=== PATIENT | male | born 1965 | race Caucasian/White ===

== ENCOUNTER 2020-05-29 14:32 | Outpatient (CLI) | payer OTHER ==
[2020-05-29] MEDS ORDERED: POTA20TA89 PO (14:57)
[2020-05-29] MEDS ORDERED: TRIA1TAB3 PO (14:57)
[2020-05-29] MEDS ORDERED: [UNRECOGNIZED DRUG - OTHER] PO (14:57)
[2020-05-29] MEDS ORDERED: [UNRECOGNIZED DRUG - OTHER] PO (14:57)
[2020-05-29] MEDS ORDERED: OMEP-110 PO (14:57)
[2020-05-29] MEDS ORDERED: [UNRECOGNIZED DRUG - OTHER] PO (14:57)
[2020-05-29] MEDS ORDERED: LACT1CAP37 PO (14:57)
[2020-05-29] MEDS ORDERED: OXYC-307 PO (14:57)
[2020-05-29] MEDS ORDERED: DULO30CA2 PO (14:57)
[2020-05-29] MEDS ORDERED: [UNRECOGNIZED DRUG - OTHER] PO (14:57)
[2020-05-29] MEDS ORDERED: MULT-658 PO (14:57)
[2020-05-29] MEDS ORDERED: GABA-827 PO (14:57)
[2020-05-29 15:28] LABS: BASOPHILS # (AUTO) 0.03 x10^3/uL (0-0.1); BASOPHILS % (AUTO) 1 % (0-1); EOSINOPHILS # (AUTO) 0.16 x10^3/uL (0-0.4); EOSINOPHILS % (AUTO) 3 % (1-7); LYMPHOCYTES # (AUTO) 1.96 x10^3/uL (1-3.4); LYMPHOCYTES % (AUTO) 36 % (22-44); MD NO; MEAN CORPUSCULAR HEMOGLOBIN 31.8 pg (27.5-34.5); MEAN CORPUSCULAR HGB CONC 33.9 g/dL (33.2-36.2); MEAN PLATELET VOLUME 7.6 fL (7.4-10.4); MONOCYTES # (AUTO) 0.98 x10^3/uL (0.2-0.8); MONOCYTES % (AUTO) 18 % (2-9); NEUTROPHILS # (AUTO) 2.35 x10^3/uL (1.8-6.8); NEUTROPHILS % (AUTO) 43 % (42-75); PLATELET COUNT 322 x10^3/uL (130-400); RED CELL DISTRIBUTION WIDTH 12.8 % (9.4-14.8)
[2020-05-29 15:35] LABS: INTERNATIONAL NORMALIZED RATIO 0.94 (0.93-1.1)
[2020-05-29 15:36] LABS: ALANINE AMINOTRANSFERASE 30 U/L (12-78); ALBUMIN 3.5 g/dL (3.4-5.0); ANION GAP 6 mmol/L (5-15); CALCIUM 8.7 mg/dL (8.5-10.1); CHLORIDE 104 mmol/L (98-107); CREATININE 1.08 mg/dL (0.7-1.3)
[2020-05-29 15:39] LABS: ALKALINE PHOSPHATASE 86 U/L (45-117); BILIRUBIN,TOTAL 0.5 mg/dL (0.2-1.0); TOTAL PROTEIN 7.9 g/dL (6.4-8.2)
== END 2020-05-29 23:59 | disposition home or self-care (01) ==
LOC: STAR 14:32
PROVIDERS: ATTEND Neurological Surgery
DX: Z01.818 Encounter for other preprocedural examination (principal); M51.36 Other intervertebral disc degeneration, lumbar region
CPT/HCPCS: 36415; 71046; 80053; 85025; 85610; 85730; 93005

== ENCOUNTER 2020-06-07 10:10 | Day surgery (SDC) | payer OTHER ==
[~2020-06-07] VITALS: Ht 182.9 cm; Wt 102.3 kg
[~2020-06-07 10:10] MED LIST: BACITRACIN 50,000 UNIT ONE; BACITRACIN OINT 500U/GM, 15 GM ONE; BUPIVACAINE/PF-EPI 0.5% 1:200K ONE; DULO30CA2 PO; GABA-827 PO; LACT1CAP37 PO; MULT-658 PO; OMEP-110 PO; OXYC-307 PO; POTA20TA89 PO; THROMBIN 20,000 UNIT VIAL TP ONE; TRIA1TAB3 PO; [UNRECOGNIZED DRUG - OTHER] PO; [UNRECOGNIZED DRUG - OTHER] PO; [UNRECOGNIZED DRUG - OTHER] PO; [UNRECOGNIZED DRUG - OTHER] PO
[2020-06-07] MEDS ORDERED: LACTATED RINGERS 1,000 ML IV SCH (10:26)
[2020-06-07] MEDS ORDERED: CHLORHEXIDINE 15 ML UDC MM ONE (10:30)
[2020-06-07 10:36] VITALS: BP 123/86
[2020-06-07] MEDS ORDERED: HYDR-3246 PO (10:36)
[2020-06-07] MEDS ORDERED: FENTANYL PF 250 MCG/5ML ONE (11:17)
[2020-06-07] MEDS ORDERED: MIDAZOLAM 1 MG/ML, 2ML ONE (11:17)
[2020-06-07] MEDS ORDERED: ROCURONIUM 10MG/ML,5ML ONE (11:38)
[2020-06-07] MEDS ORDERED: NEOSTIGMINE 1 MG/ML, 10ML ONE (11:38)
[2020-06-07] MEDS ORDERED: GLYCOPYRROLATE 0.2MG/1ML, 5ML ONE (11:38)
[2020-06-07] MEDS ORDERED: DEXAMETHASONE 4 MG/ML, 1ML ONE (11:38)
[2020-06-07] MEDS ORDERED: SUCCINYLCHOLINE 20 MG/ML, 10ML ONE (11:38)
[2020-06-07] MEDS ORDERED: ONDANSETRON 2MG/ML, 2ML ONE (11:38)
[2020-06-07] MEDS ORDERED: LIDOCAINE-MPF 2% ,5ML ONE (11:38)
[2020-06-07] MEDS ORDERED: CEFAZOLIN 1,000 MG ONE (11:38)
[2020-06-07] MEDS ORDERED: PROPOFOL 10 MG/ML, 20ML ONE (11:38)
[2020-06-07] MEDS ORDERED: KETOROLAC 30 MG/1 ML ONE ×2 (11:38)
[2020-06-07] MEDS ORDERED: PROPOFOL 50 ML ONE (11:42)
[2020-06-07] MEDS ORDERED: MEPERIDINE/PF 25MG/0.5ML IVPush PRN (13:00)
[2020-06-07] MEDS ORDERED: hydrALAzine 20 MG/ML, 1ML IV PRN (13:00)
[2020-06-07] MEDS ORDERED: METHOCARBAMOL 1,000 MG in DEXTROSE 5% 100 ML IV PRN (13:00)
[2020-06-07] MEDS ORDERED: PROMETHAZINE 25 MG/ML, 1ML IVPush PRN (13:00)
[2020-06-07] MEDS ORDERED: LABETALOL 5MG/ML, 20ML IV PRN (13:00)
[2020-06-07] MEDS ORDERED: OXYcodone 5 MG/5 ML ORAL.SOL UDC PO PRN (13:00)
[2020-06-07] MEDS ORDERED: ALBUTEROL SULFATE 2.5 MG/3 ML NPPB PRN (13:00)
[2020-06-07] MEDS ORDERED: ACETAMINOPHEN 325 MG TABLET PO PRN (13:00)
[2020-06-07] MEDS ORDERED: LORazepam 2 MG/ML, 1ML IVPush PRN (13:00)
[2020-06-07] MEDS ORDERED: FENTANYL PF 100 MCG/2ML ONE (13:26)
[2020-06-07] MEDS ORDERED: OXYcodone 5 MG/5 ML ORAL.SOL UDC ONE (13:26)
[2020-06-07] MEDS: FENTANYL PF 100 MCG/2ML IV PRN ×2 (13:30→13:35)
[2020-06-07] MEDS ORDERED: HYDROmorphone 1 MG/ML, 1ML INJ ONE (13:41)
[2020-06-07] MEDS: HYDROmorphone 1 MG/ML, 1ML INJ IVPush PRN ×2 (13:45→13:50)
[2020-06-07] MEDS ORDERED: GABAPENTIN 400 MG CAPSULE PO SCH (14:00)
[2020-06-07] MEDS ORDERED: METHOCARBAMOL 1,000 MG in DEXTROSE 5% 100 ML IV ONE (15:00)
== END 2020-06-07 16:50 | disposition home or self-care (01) ==
LOC: SDC 10:10 → EDSTATUS 13:30 → SDC 16:50 → UNDODISIN 17:00
PROVIDERS: ATTEND Neurological Surgery
DX: Z45.42 Encounter for adjustment and management of neurostimulator (principal); Z20.828 Contact with and (suspected) exposure to other viral communicable diseases; M54.5 Low back pain; M51.36 Other intervertebral disc degeneration, lumbar region; M48.061 Spinal stenosis, lumbar region without neurogenic claudication; M47.817 Spondylosis without myelopathy or radiculopathy, lumbosacral region; K21.9 Gastro-esophageal reflux disease without esophagitis; I10 Essential (primary) hypertension; J45.909 Unspecified asthma, uncomplicated; G47.33 Obstructive sleep apnea (adult) (pediatric); E66.9 Obesity, unspecified; Z68.28 Body mass index [BMI] 28.0-28.9, adult; Z79.891 Long term (current) use of opiate analgesic; Z79.899 Other long term (current) drug therapy
CPT/HCPCS: 36415; 63662; 72072; 87635; 95938; 95941; J0330; J0690; J1100; J1170; J1885; J2250; J2405; J2704; J2710; J3010; J7120

== ENCOUNTER 2020-06-22 13:14 | Inpatient (IN) | payer OTHER ==
[~2020-06-22] VITALS: Ht 182.9 cm; Wt 101.0 kg
[~2020-06-22 13:14] MED LIST changes: -BACITRACIN 50,000 UNIT ONE; -BACITRACIN OINT 500U/GM, 15 GM ONE; -BUPIVACAINE/PF-EPI 0.5% 1:200K ONE; +HYDR-3246 PO; -THROMBIN 20,000 UNIT VIAL TP ONE
[2020-06-22] MEDS ORDERED: ONDANSETRON 2MG/ML, 2ML IVPush ONE (14:30)
[2020-06-22] MEDS ORDERED: HYDROmorphone 1 MG/ML, 1ML INJ IVPush PRN (14:30)
[2020-06-22] MEDS ORDERED: SODIUM CHLORIDE FLUSH 10ML SYR IVF ONE (14:30)
[2020-06-22] MEDS ORDERED: CEFTRIAXONE PMX 1GM/50ML 50 ML IVPB ONE (14:30)
[2020-06-22] MEDS ORDERED: CEFTRIAXONE PMX 1GM/50ML 50 ML ONE (14:40)
[2020-06-22] MEDS ORDERED: HYDROmorphone 1 MG/ML, 1ML INJ ONE (14:41)
[2020-06-22] MEDS ORDERED: ONDANSETRON 2MG/ML, 2ML ONE (14:41)
--- NOTE | 2020-06-22 15:03 | NUR ---
BREAK RN: PT RESTING ON GURNEY. NADN. FLORES. PIV INITIATED AND MEDICATED PER JAN.
--- NOTE | 2020-06-22 15:21 | NUR ---
PT RPTS BACK PAIN NOW 11/12 BUT REQUESTS HIS GABAPENTIN 2/2 SHASHI FOOT NEUROPATHY.
[2020-06-22 15:36] LABS: BASOPHILS # (AUTO) 0.05 x10^3/uL (0-0.1); BASOPHILS % (AUTO) 0 % (0-1); EOSINOPHILS # (AUTO) 0.08 x10^3/uL (0-0.4); EOSINOPHILS % (AUTO) 1 % (1-7); LYMPHOCYTES # (AUTO) 2.16 x10^3/uL (1-3.4); LYMPHOCYTES % (AUTO) 20 % (22-44); MD NO; MEAN CORPUSCULAR HEMOGLOBIN 31.3 pg (27.5-34.5); MEAN CORPUSCULAR HGB CONC 33.5 g/dL (33.2-36.2); MEAN CORPUSCULAR VOLUME 93.3 fL (81-97); MONOCYTES # (AUTO) 1.29 x10^3/uL (0.2-0.8); MONOCYTES % (AUTO) 12 % (2-9); NEUTROPHILS # (AUTO) 7.01 x10^3/uL (1.8-6.8); NEUTROPHILS % (AUTO) 66 % (42-75); PLATELET COUNT 292 x10^3/uL (130-400); RED BLOOD COUNT 4.95 x10^6/uL (4.38-5.82); RED CELL DISTRIBUTION WIDTH 12.7 % (9.4-14.8)
[2020-06-22 15:44] LABS: ALBUMIN 3.5 g/dL (3.4-5.0); ANION GAP 7 mmol/L (5-15); CALCIUM 8.9 mg/dL (8.5-10.1); CHLORIDE 102 mmol/L (98-107); CREATININE 0.91 mg/dL (0.7-1.3)
[2020-06-22 16:41] LABS: HCT (SEDRATE) 46.2 % (39.2-51.8)
[2020-06-22] MEDS ORDERED: GADOTERATE 10 MMOL/20 ML VIAL ONE (16:43)
[2020-06-22] MEDS ORDERED: NS + 20MEQ KCL 1,000 ML IV SCH (17:44)
[2020-06-22] MEDS ORDERED: OMEPRAZOLE 20 MG CAPSULE.DR PO SCH (18:00)
[2020-06-22] MEDS ORDERED: morphine SULFATE 10 MG/ML, 1ML IVPush PRN (18:00)
[2020-06-22] MEDS ORDERED: BISACODYL 10 MG SUPP PR PRN (18:00)
[2020-06-22] MEDS ORDERED: POLYETHYLENE GLYCOL 17 GM PACKET PO PRN (18:00)
[2020-06-22] MEDS ORDERED: ACETAMINOPHEN 325 MG TABLET PO PRN (18:00)
[2020-06-22] MEDS ORDERED: ONDANSETRON ODT 4 MG PO PRN (18:00)
[2020-06-22] MEDS ORDERED: OXYcodone/APAP 10/325MG TABLET PO PRN (18:00)
--- NOTE | 2020-06-22 18:22 | NUR ---
LATE ENTRY FOR 1430, PER DISCUSSION WITH DR CALDERON OFFICE AND DR ZUNIGA ANTIBIOTICS ARE ON HOLD FOR NOW. DR NIX INTENDS TO CULTURE THE WOUNDS AND WANTS ANTIBIOTICS HELD UNTIL THEN
[2020-06-22] MEDS ORDERED: OMEPRAZOLE 20 MG CAPSULE.DR ONE (18:24)
[2020-06-22] MEDS ORDERED: NS + 20MEQ KCL 1,000 ML IV ONE (18:25)
[2020-06-22 18:58] VITALS: BP 116/62
[2020-06-22] MEDS ORDERED: LIDOCAINE-MPF 1%, 5ML ONE (19:17)
[2020-06-22] MEDS ORDERED: LIDOCAINE 2%, 20ML SQ ONE (19:30)
[2020-06-22] MEDS ORDERED: morphine SULFATE 10 MG/ML, 1ML IVPush ONE (19:50)
[2020-06-22] MEDS ORDERED: CEFTRIAXONE PMX 2GM/50ML 50 ML IV ONE (20:30)
[2020-06-22] MEDS ORDERED: VANCOMYCIN PER PHARMACY MC PRN (20:30)
[2020-06-22] MEDS: DULOXETINE 30 MG CAPSULE.DR PO SCH (20:45)
[2020-06-22] MEDS: GABAPENTIN 400 MG CAPSULE PO SCH (20:45)
[2020-06-22] MEDS ORDERED: GABAPENTIN 400 MG CAPSULE PO SCH (21:00)
[2020-06-22] MEDS ORDERED: PHARMACOKINETIC MONITORING MC PRN ×2 (21:00)
[2020-06-22] MEDS ORDERED: DIPHENHYDRAMINE 25 MG CAPSULE PO PRN (21:00)
[2020-06-22] MEDS ORDERED: VANCOMYCIN 2,500 MG in SODIUM CHLORIDE 0.9% 500 ML IV ONE (21:00)
[2020-06-22] MEDS ORDERED: PHARMACOKINETIC CONSULTATION MC ONE ×2 (21:00)
[2020-06-22] MEDS ORDERED: DIPHENHYDRAMINE 25 MG CAPSULE ONE (21:15)
[2020-06-22] MEDS: METRONIDAZOLE PMX 500MG/100ML 100 ML IV SCH (22:16)
[2020-06-22 22:22] VITALS: BP 116/62
[2020-06-23] MEDS ORDERED: OMEPRAZOLE 20 MG CAPSULE.DR PO PRN
[2020-06-23 00:20] VITALS: BP 101/64
[2020-06-23 06:15] LABS: ANION GAP 7 mmol/L (5-15); CALCIUM 8.3 mg/dL (8.5-10.1); CHLORIDE 105 mmol/L (98-107)
[2020-06-23 06:16] LABS: CREATININE 0.91 mg/dL (0.7-1.3)
[2020-06-23 06:23] LABS: BASOPHILS # (AUTO) 0.04 x10^3/uL (0-0.1); BASOPHILS % (AUTO) 1 % (0-1); EOSINOPHILS # (AUTO) 0.23 x10^3/uL (0-0.4); EOSINOPHILS % (AUTO) 3 % (1-7); LYMPHOCYTES # (AUTO) 2.19 x10^3/uL (1-3.4); LYMPHOCYTES % (AUTO) 27 % (22-44); MD NO; MEAN CORPUSCULAR HEMOGLOBIN 31.4 pg (27.5-34.5); MEAN CORPUSCULAR HGB CONC 33.7 g/dL (33.2-36.2); MEAN CORPUSCULAR VOLUME 93.1 fL (81-97); MEAN PLATELET VOLUME 8.1 fL (7.4-10.4); MONOCYTES # (AUTO) 1.15 x10^3/uL (0.2-0.8); MONOCYTES % (AUTO) 14 % (2-9); NEUTROPHILS # (AUTO) 4.43 x10^3/uL (1.8-6.8); NEUTROPHILS % (AUTO) 55 % (42-75); PLATELET COUNT 246 x10^3/uL (130-400); RED BLOOD COUNT 4.61 x10^6/uL (4.38-5.82); RED CELL DISTRIBUTION WIDTH 12.7 % (9.4-14.8)
[2020-06-23] MEDS ORDERED: CHLORHEXIDINE 15 ML UDC MM ONE (06:30)
[2020-06-23] MEDS ORDERED: BACITRACIN 50,000 UNIT ONE ×2 (06:33→07:23)
[2020-06-23] MEDS ORDERED: THROMBIN 20,000 UNIT VIAL TP ONE (06:33)
[2020-06-23] MEDS ORDERED: BUPIVACAINE/PF-EPI 0.5% 1:200K ONE (06:33)
[2020-06-23] MEDS ORDERED: BACITRACIN ZINC OINT 500U/GM, 0.9 GM ONE (06:33)
[2020-06-23] MEDS ORDERED: PROPOFOL 50 ML ONE ×2 (06:53→07:37)
[2020-06-23] MEDS ORDERED: FENTANYL PF 250 MCG/5ML ONE (06:53)
[2020-06-23] MEDS ORDERED: CEFAZOLIN 1,000 MG ONE (06:59)
[2020-06-23] MEDS ORDERED: POTASSIUM CHLORIDE 20 MEQ in SODIUM CHLORIDE 0.9% 250 ML IV ONE (07:00)
[2020-06-23] MEDS ORDERED: VANCOMYCIN 1,000 MG ONE (07:23)
[2020-06-23] MEDS ORDERED: OXYcodone 5 MG/5 ML ORAL.SOL UDC PO PRN (07:30)
[2020-06-23] MEDS ORDERED: PROMETHAZINE 25 MG/ML, 1ML IVPush PRN (07:30)
[2020-06-23] MEDS ORDERED: EPHEDRINE 50 MG/ML, 1ML IM PRN (07:30)
[2020-06-23] MEDS ORDERED: MEPERIDINE/PF 25MG/0.5ML IVPush PRN (07:30)
[2020-06-23] MEDS ORDERED: ONDANSETRON 2MG/ML, 2ML IVPush PRN (07:30)
[2020-06-23] MEDS ORDERED: DIAZEPAM 5 MG/ML, 2ML IVPush PRN (07:30)
[2020-06-23] MEDS ORDERED: DIPHENHYDRAMINE 50 MG/ML, 1ML IVPush PRN ×2 (07:30→10:30)
[2020-06-23] MEDS ORDERED: HYDROmorphone 1 MG/ML, 1ML INJ IVPush PRN (07:30)
[2020-06-23] MEDS ORDERED: ONDANSETRON 2MG/ML, 2ML ONE (07:36)
[2020-06-23] MEDS ORDERED: ROCURONIUM 10MG/ML,5ML ONE (07:36)
[2020-06-23] MEDS ORDERED: SUCCINYLCHOLINE 20 MG/ML, 10ML ONE (07:37)
[2020-06-23] MEDS ORDERED: PROPOFOL 10 MG/ML, 20ML ONE (07:37)
[2020-06-23] MEDS ORDERED: FENTANYL PF 100 MCG/2ML ONE (08:33)
[2020-06-23] MEDS ORDERED: OXYcodone 5 MG/5 ML ORAL.SOL UDC ONE (08:33)
[2020-06-23] MEDS: FENTANYL PF 100 MCG/2ML IV PRN ×2 (08:36→08:54)
[2020-06-23] MEDS ORDERED: SENNA/DOCUSATE TABLET PO SCH (09:00)
[2020-06-23] MEDS ORDERED: [UNRECOGNIZED DRUG - OTHER] PO SCH (09:00)
[2020-06-23] MEDS ORDERED: [UNRECOGNIZED DRUG - OTHER] PO SCH (09:00)
[2020-06-23] MEDS: TRIAMTERENE-HCTZ 37.5/25 MG TABLET PO SCH (10:28)
[2020-06-23] MEDS: MULTIVITAMIN 1 TABLET PO SCH (10:28)
[2020-06-23] MEDS: METRONIDAZOLE PMX 500MG/100ML 100 ML IV SCH ×2 (10:28→20:39)
[2020-06-23] MEDS: POTASSIUM CHLORIDE 20 MEQ TAB.ER.PRT PO SCH (10:29)
[2020-06-23] MEDS: LACTOBACILLUS CHEW TABLET PO SCH (10:29)
[2020-06-23] MEDS: GABAPENTIN 400 MG CAPSULE PO PRN ×3 (10:29→18:32)
[2020-06-23] MEDS ORDERED: DIPHENHYDRAMINE 25 MG CAPSULE PO PRN (10:30)
[2020-06-23] MEDS ORDERED: MAGNESIUM HYDROXIDE 8%, 30ML UDC PO PRN (10:30)
[2020-06-23] MEDS ORDERED: OXYcodone IR 5MG TABLET PO PRN (10:30)
[2020-06-23] MEDS ORDERED: ONDANSETRON 2MG/ML, 2ML IV PRN (10:30)
[2020-06-23] MEDS ORDERED: DIPHENHYDRAMINE 50 MG/ML, 1ML IM PRN (10:30)
[2020-06-23] MEDS ORDERED: BISACODYL 10 MG SUPP PR PRN (10:30)
[2020-06-23] MEDS ORDERED: HYDROcodone/APAP 5/325 TABLET PO PRN (10:30)
[2020-06-23] MEDS ORDERED: ROCEPHIN MC SCH (10:30)
[2020-06-23] MEDS ORDERED: PROMETHAZINE 25 MG/ML, 1ML IM PRN (10:30)
[2020-06-23] MEDS ORDERED: CEFTRIAXONE PMX 2GM/50ML 50 ML IV SCH (11:00)
[2020-06-23] MEDS ORDERED: METHOCARBAMOL 1,000 MG in DEXTROSE 5% 100 ML IV ONE (11:00)
[2020-06-23 12:28] VITALS: BP 141/70
[2020-06-23] MEDS: VANCOMYCIN 2,000 MG in SODIUM CHLORIDE 0.9% 500 ML IV SCH (12:31)
[2020-06-23] MEDS: NS + 20MEQ KCL 1,000 ML IV SCH (12:31)
[2020-06-23 18:59] VITALS: BP 92/60
[2020-06-23] MEDS: GABAPENTIN 400 MG CAPSULE PO SCH (20:39)
[2020-06-23] MEDS: DULOXETINE 30 MG CAPSULE.DR PO SCH (20:39)
[2020-06-24 00:10] VITALS: BP 100/59
[2020-06-24] MEDS: METHOCARBAMOL 750 MG in DEXTROSE 5% 100 ML IV SCH ×3 (00:37→18:20)
[2020-06-24] MEDS: VANCOMYCIN 2,000 MG in SODIUM CHLORIDE 0.9% 500 ML IV SCH ×2 (01:41→13:22)
[2020-06-24 03:48] VITALS: BP 105/63
[2020-06-24] MEDS: METRONIDAZOLE PMX 500MG/100ML 100 ML IV SCH (04:50)
[2020-06-24 05:21] LABS: CHLORIDE 105 mmol/L (98-107)
[2020-06-24 05:25] LABS: ANION GAP 7 mmol/L (5-15); CREATININE 0.87 mg/dL (0.7-1.3)
[2020-06-24 07:31] VITALS: BP 105/67
[2020-06-24] MEDS: LACTOBACILLUS CHEW TABLET PO SCH (08:02)
[2020-06-24] MEDS: MULTIVITAMIN 1 TABLET PO SCH (08:03)
[2020-06-24] MEDS: TRIAMTERENE-HCTZ 37.5/25 MG TABLET PO SCH (08:03)
[2020-06-24] MEDS: POTASSIUM CHLORIDE 20 MEQ TAB.ER.PRT PO SCH (08:03)
[2020-06-24] MEDS: SENNA/DOCUSATE TABLET PO SCH (08:04)
[2020-06-24] MEDS: GABAPENTIN 400 MG CAPSULE PO PRN ×3 (08:04→16:17)
[2020-06-24] MEDS: HYDROcodone/APAP 10/325 MG TABLET PO PRN ×3 (08:04→18:20)
[2020-06-24] MEDS ORDERED: DIPHENHYDRAMINE 50 MG CAPSULE PO ONE (09:00)
[2020-06-24] MEDS: NS + 20MEQ KCL 1,000 ML IV SCH ×2 (10:00→20:00)
[2020-06-24] MEDS: DIPHENHYDRAMINE/ZINC CRM 2%, 30GM TP PRN (13:22)
[2020-06-24 14:00] VITALS: BP 119/70
[2020-06-24] MEDS: DIPHENHYDRAMINE 25 MG CAPSULE PO SCH ×2 (16:19→21:10)
[2020-06-24 19:47] VITALS: BP 107/66
[2020-06-24] MEDS: DULOXETINE 30 MG CAPSULE.DR PO SCH (21:09)
[2020-06-24] MEDS: GABAPENTIN 400 MG CAPSULE PO SCH (21:11)
[2020-06-25] MEDS: VANCOMYCIN 2,000 MG in SODIUM CHLORIDE 0.9% 500 ML IV SCH ×2 (00:21→14:19)
[2020-06-25 01:47] VITALS: BP 127/76
[2020-06-25] MEDS: DIPHENHYDRAMINE 25 MG CAPSULE PO SCH ×4 (03:06→21:33)
[2020-06-25] MEDS: METHOCARBAMOL 750 MG in DEXTROSE 5% 100 ML IV SCH ×3 (03:37→19:54)
[2020-06-25] MEDS: NS + 20MEQ KCL 1,000 ML IV SCH (06:00)
[2020-06-25 07:11] VITALS: BP 121/74
[2020-06-25] MEDS: GABAPENTIN 400 MG CAPSULE PO PRN ×3 (07:42→20:10)
[2020-06-25] MEDS: POTASSIUM CHLORIDE 20 MEQ TAB.ER.PRT PO SCH (07:42)
[2020-06-25] MEDS: TRIAMTERENE-HCTZ 37.5/25 MG TABLET PO SCH (07:42)
[2020-06-25] MEDS: SENNA/DOCUSATE TABLET PO SCH (07:42)
[2020-06-25] MEDS: MULTIVITAMIN 1 TABLET PO SCH (07:43)
[2020-06-25] MEDS: HYDROcodone/APAP 10/325 MG TABLET PO PRN ×2 (07:43→15:29)
[2020-06-25] MEDS: LACTOBACILLUS CHEW TABLET PO SCH (07:43)
[2020-06-25 13:13] VITALS: BP 146/83
[2020-06-25] MEDS: METHOCARBAMOL 750 MG TABLET PO SCH (19:15)
[2020-06-25 20:09] VITALS: BP 114/70
[2020-06-26] MEDS: DULOXETINE 30 MG CAPSULE.DR PO SCH ×2 (00:37→20:50)
[2020-06-26] MEDS: GABAPENTIN 400 MG CAPSULE PO SCH ×2 (00:38→20:50)
[2020-06-26] MEDS: VANCOMYCIN 2,000 MG in SODIUM CHLORIDE 0.9% 500 ML IV SCH ×2 (01:45→14:12)
[2020-06-26 02:01] LABS: HCT (SEDRATE) 42.5 % (39.2-51.8)
[2020-06-26 02:05] LABS: BASOPHILS # (AUTO) 0.07 x10^3/uL (0-0.1); BASOPHILS % (AUTO) 1 % (0-1); EOSINOPHILS % (AUTO) 5 % (1-7); LYMPHOCYTES # (AUTO) 1.78 x10^3/uL (1-3.4); LYMPHOCYTES % (AUTO) 28 % (22-44); MD NO; MEAN CORPUSCULAR HGB CONC 33.3 g/dL (33.2-36.2); MEAN CORPUSCULAR VOLUME 93.1 fL (81-97); MEAN PLATELET VOLUME 7.8 fL (7.4-10.4); MONOCYTES # (AUTO) 1.01 x10^3/uL (0.2-0.8); MONOCYTES % (AUTO) 16 % (2-9); NEUTROPHILS # (AUTO) 3.29 x10^3/uL (1.8-6.8); NEUTROPHILS % (AUTO) 51 % (42-75); PLATELET COUNT 322 x10^3/uL (130-400); RED BLOOD COUNT 4.55 x10^6/uL (4.38-5.82); RED CELL DISTRIBUTION WIDTH 12.4 % (9.4-14.8)
[2020-06-26 02:12] LABS: ALANINE AMINOTRANSFERASE 31 U/L (12-78); ALBUMIN 2.8 g/dL (3.4-5.0); ANION GAP 7 mmol/L (5-15); CALCIUM 8.6 mg/dL (8.5-10.1); CHLORIDE 105 mmol/L (98-107); CREATININE 0.81 mg/dL (0.7-1.3)
[2020-06-26] MEDS: DIPHENHYDRAMINE/ZINC CRM 2%, 30GM TP PRN ×2 (02:18→21:09)
[2020-06-26 02:19] LABS: ALKALINE PHOSPHATASE 79 U/L (45-117); BILIRUBIN,TOTAL 0.5 mg/dL (0.2-1.0); TOTAL PROTEIN 6.9 g/dL (6.4-8.2)
[2020-06-26 02:36] VITALS: BP 116/83
[2020-06-26] MEDS: DIPHENHYDRAMINE 25 MG CAPSULE PO SCH ×4 (02:40→20:50)
[2020-06-26] MEDS: METHOCARBAMOL 750 MG TABLET PO SCH ×3 (02:40→20:49)
[2020-06-26 07:51] VITALS: BP 128/74
[2020-06-26] MEDS: GABAPENTIN 400 MG CAPSULE PO PRN (07:57)
[2020-06-26] MEDS: LACTOBACILLUS CHEW TABLET PO SCH (07:57)
[2020-06-26] MEDS: MULTIVITAMIN 1 TABLET PO SCH (07:58)
[2020-06-26] MEDS: SENNA/DOCUSATE TABLET PO SCH (07:58)
[2020-06-26] MEDS: POTASSIUM CHLORIDE 20 MEQ TAB.ER.PRT PO SCH (07:58)
[2020-06-26] MEDS: TRIAMTERENE-HCTZ 37.5/25 MG TABLET PO SCH (07:59)
[2020-06-26 13:48] VITALS: BP 111/76
[2020-06-26] MEDS: KETOCONAZOLE CRM 2%, 15GM TP SCH ×2 (17:43→21:09)
[2020-06-26 20:02] VITALS: BP 103/65
[2020-06-26] MEDS: HYDROcodone/APAP 10/325 MG TABLET PO PRN (20:50)
[2020-06-27 01:04] VITALS: BP 113/71
[2020-06-27] MEDS: DIPHENHYDRAMINE 25 MG CAPSULE PO SCH ×3 (02:23→14:52)
[2020-06-27] MEDS: VANCOMYCIN 2,000 MG in SODIUM CHLORIDE 0.9% 500 ML IV SCH (02:23)
[2020-06-27] MEDS: METHOCARBAMOL 750 MG TABLET PO SCH ×2 (02:23→12:00)
[2020-06-27] MEDS: GABAPENTIN 400 MG CAPSULE PO PRN ×3 (02:29→14:52)
[2020-06-27] MEDS ORDERED: CATHFLO-ALTEPLASE 2 MG/2 ML CATHFLUSH ONE (05:30)
[2020-06-27] MEDS: HYDROcodone/APAP 10/325 MG TABLET PO PRN ×2 (05:45→14:52)
[2020-06-27 07:10] LABS: ANION GAP 5 mmol/L (5-15); CHLORIDE 108 mmol/L (98-107)
[2020-06-27 07:12] LABS: CALCIUM 8.3 mg/dL (8.5-10.1); CREATININE 0.78 mg/dL (0.7-1.3)
[2020-06-27 07:17] LABS: BASOPHILS # (AUTO) 0.03 x10^3/uL (0-0.1); BASOPHILS % (AUTO) 0 % (0-1); EOSINOPHILS # (AUTO) 0.38 x10^3/uL (0-0.4); EOSINOPHILS % (AUTO) 6 % (1-7); LYMPHOCYTES # (AUTO) 1.88 x10^3/uL (1-3.4); LYMPHOCYTES % (AUTO) 27 % (22-44); MD NO; MEAN CORPUSCULAR HEMOGLOBIN 31.3 pg (27.5-34.5); MEAN CORPUSCULAR HGB CONC 33.5 g/dL (33.2-36.2); MEAN CORPUSCULAR VOLUME 93.2 fL (81-97); MEAN PLATELET VOLUME 7.6 fL (7.4-10.4); MONOCYTES % (AUTO) 16 % (2-9); NEUTROPHILS # (AUTO) 3.53 x10^3/uL (1.8-6.8); NEUTROPHILS % (AUTO) 51 % (42-75); PLATELET COUNT 344 x10^3/uL (130-400); RED BLOOD COUNT 4.65 x10^6/uL (4.38-5.82); RED CELL DISTRIBUTION WIDTH 12.3 % (9.4-14.8)
[2020-06-27 07:40] VITALS: BP 117/74
[2020-06-27] MEDS: MULTIVITAMIN 1 TABLET PO SCH (08:01)
[2020-06-27] MEDS: TRIAMTERENE-HCTZ 37.5/25 MG TABLET PO SCH (08:01)
[2020-06-27] MEDS: SENNA/DOCUSATE TABLET PO SCH (08:01)
[2020-06-27] MEDS: LACTOBACILLUS CHEW TABLET PO SCH (08:01)
[2020-06-27] MEDS: POTASSIUM CHLORIDE 20 MEQ TAB.ER.PRT PO SCH ×2 (08:01→12:00)
[2020-06-27] MEDS ORDERED: ERTAPENEM 1 GM in SODIUM CHLORIDE 0.9% 50 ML IV SCH (09:30)
[2020-06-27 13:42] VITALS: BP 108/71
[2020-06-27] MEDS ORDERED: ERTA1VIA IV (13:59)
== END 2020-06-27 16:10 | disposition home or self-care (01) | DRG 857 ==
LOC: ED 14:09 → EDIP 18:21 → 4NE 18:46
PROVIDERS: ADMIT Internal Medicine; ATTEND Internal Medicine
PROC: 0J960ZZ Drainage of Chest Subcutaneous Tissue and Fascia, Open Approach (ICD-10-PCS; principal; 2020-06-23 07:00)
DX: T81.41XA Infection following a procedure, superficial incisional surgical site, initial encounter (principal); T85.733A Infection and inflammatory reaction due to implanted electronic neurostimulator of spinal cord, electrode (lead), initial encounter; G96.0 Cerebrospinal fluid leak; L02.212 Cutaneous abscess of back [any part, except buttock and flank]; R78.81 Bacteremia; Y83.8 Other surgical procedures as the cause of abnormal reaction of the patient, or of later complication, without mention of misadventure at the time of the procedure; Y83.1 Surgical operation with implant of artificial internal device as the cause of abnormal reaction of the patient, or of later complication, without mention of misadventure at the time of the procedure; E66.9 Obesity, unspecified; E87.6 Hypokalemia; E88.09 Other disorders of plasma-protein metabolism, not elsewhere classified; Z20.828 Contact with and (suspected) exposure to other viral communicable diseases; G62.9 Polyneuropathy, unspecified; G89.29 Other chronic pain; I10 Essential (primary) hypertension; L29.9 Pruritus, unspecified; D72.829 Elevated white blood cell count, unspecified; Z88.8 Allergy status to other drugs, medicaments and biological substances; Y92.89 Other specified places as the place of occurrence of the external cause; Z79.899 Other long term (current) drug therapy; Z91.048 Other nonmedicinal substance allergy status
CPT/HCPCS: 36415; 36573; 72157; 80048; 80053; 80202; 82040; 83605; 83735; 85025; 85651; 86140; 87040; 87070; 87075; 87077; 87147; 87186; 87205; 87635; 95938; 95941; G0378; J0690; J0696; J1170; J1335; J2270; J2405; J2704; J2997; J3010; J3370; J3480; Q0162; C1751; J0330; J2800; J7040; J7050; Q0163